=== PATIENT | male | born 1980 | race Caucasian/White ===

== ENCOUNTER 2017-09-27 08:23 | Emergency (ER) | payer SELFPAY ==
[~2017-09-27] VITALS: Ht 167.6 cm; Wt 65.8 kg
[2017-09-27 08:26] VITALS: BP 118/68
--- NOTE | 2017-09-27 08:31 | NUR ---
PT AMBULATES TO BED 7 WITH STEADY GAIT
--- NOTE | 2017-09-27 08:36 | NUR ---
PATIENT PRESENTS TO ED WITH awoke this am to abdominal pain and repeated n/v---pt admits eating late take out last night.denies diarrhea; SKIN IS PINK/WARM/DRY; AAOX4 WITH EVEN AND STEADY GAIT; LUNGS CLEAR BL; HR EVEN AND REGULAR; PT DENIES ANY FEVER, CP, SOB, OR COUGH AT THIS TIME; PATIENT STATES PAIN OF 7/10 AT THIS TIME; VSS; PATIENT POSITIONED FOR COMFORT; HOB ELEVATED; BEDRAILS UP X2; BED DOWN. ER MD MADE AWARE OF PT STATUS.
[2017-09-27] MEDS ORDERED: LORazepam 2 MG/ML VIAL IM/IVP STA (08:42)
[2017-09-27] MEDS ORDERED: ONDANSETRON 4 MG ODT SL PRN (08:45)
[2017-09-27] MEDS ORDERED: ONDANSETRON 4 MG/2 ML VIAL ONE (08:48)
[2017-09-27] MEDS ORDERED: LORazepam 2 MG/ML VIAL ONE (08:49)
[2017-09-27] MEDS ORDERED: ONDANSETRON 4 MG/2 ML VIAL IM ONE (08:50)
--- NOTE | 2017-09-27 08:58 | NUR ---
pt unable to provide urine sample at this time
[2017-09-27 09:18] LABS: BASOPHILS % (AUTO) 0.3 % (0.0-2.0); EOSINOPHILS # (AUTO) 0.1 K/uL (0-0.4); EOSINOPHILS % (AUTO) 0.5 % (0.0-4.0); HEMATOCRIT 43.2 % (36-52); HEMOGLOBIN 14.4 g/dL (12.0-18.0); LYMPHOCYTES # (AUTO) 2.1 K/uL (2.0-11.5); LYMPHOCYTES % (AUTO) 13.7 % (20.5-51.1); MEAN CORPUSCULAR HEMOGLOBIN 29 pg (27-31); MEAN CORPUSCULAR HGB CONC 33 g/dL (33-37); MEAN CORPUSCULAR VOLUME 86.1 fL (80-94); MONOCYTES # (AUTO) 1.3 K/uL (0.8-1.0); MONOCYTES % (AUTO) 8.4 % (1.7-9.3); NEUTROPHILS # (AUTO) 11.6 K/uL (1.8-7.7); NEUTROPHILS % (AUTO) 77.1 % (42.2-75.2); PLATELET COUNT (AUTO) 325 K/uL (140-450); RED BLOOD CELL COUNT(AUTO) 5.02 MIL/uL (4.20-6.10); RED CELL DISTRIBUTION WIDTH 13.2 % (11.6-13.7); WHITE BLOOD COUNT (AUTO) 15.1 K/uL (4.8-10.8)
[2017-09-27 09:26] LABS: ANION GAP 18.6 (8-16); CARBON DIOXIDE 20.8 mmol/L (21-32); CREATININE 1.2 mg/dL (0.7-1.3); POTASSIUM 3.4 mmol/L (3.5-5.1)
[2017-09-27 09:32] LABS: ALBUMIN 4.4 g/dL (3.4-5.0); TOTAL BILIRUBIN 1.1 mg/dL (0.0-1.0)
[2017-09-27] MEDS ORDERED: NACL 0.9% 1,000 ML IV SCH (09:49)
[2017-09-27] MEDS ORDERED: diphenhydrAMINE 50 MG/ML VIAL IVP ONE ×3 (09:50→11:05)
[2017-09-27] MEDS ORDERED: METOCLOPRAMIDE 10 MG/2 ML INJ VIAL IVP ONE (09:50)
--- NOTE | 2017-09-27 10:12 | NUR ---
AWAITS CT SCAN TO BE UP RUNNING AGAIN---MEDICATED FOR DRY HEAVING
[2017-09-27] MEDS ORDERED: NACL 0.9% 1,000 ML IV ONE (11:05)
[2017-09-27 11:50] LABS: APPEARANCE,URINE CLEAR (CLEAR); BILIRUBIN,URINE NEGATIVE (NEGATIVE); BLOOD, URINE NEGATIVE (NEGATIVE); COLOR,URINE YELLOW (YELLOW); LEUKOCYTE ESTERASE ,URINE NEGATIVE (NEGATIVE); NITRITE, URINE NEGATIVE (NEGATIVE); PH,URINE 6.5 (5.0-9.0); UGLUCOSE 1+ (NEGATIVE)
[2017-09-27 11:55] LABS: BARBITURATE, URINE NEG. ng/ml (NEG <=200); BENZODIAZEPINE, URINE NEG. ng/mL (NEG <=200); CANNABINOID, URINE POS. ng/mL (NEG <=50); COCAINE, URINE NEG. ng/mL (NEG <=300); OPIATE, URINE NEG. ng/mL (NEG <=2000); PHENCYCLIDINE SCREEN,URINE NEG. ng/mL (NEG <=25)
[2017-09-27 12:03] LABS: RBC,URINE 0-5 (RARE) /HPF (0-5); WBC,URINE 0-5 (RARE) /HPF (0-5)
--- NOTE | 2017-09-27 13:03 | NUR ---
ultrasound at bedside
[2017-09-27 14:34] VITALS: BP 125/70
--- NOTE | 2017-09-27 14:34 | NUR ---
Patient discharged with v/s stable. Written and verbal after care instructions given and explained. Patient alert, oriented and verbalized understanding of instructions. Ambulatory with steady gait. All questions addressed prior to discharge. ID band removed. Patient advised to follow up with PMD. Rx of zofran/ativan/reglan given. Patient educated on indication of medication including possible reaction and side effects. Opportunity to ask questions provided and answered.
== END 2017-09-27 14:34 | disposition home or self-care (01) ==
LOC: MED 08:23 → EDBD 08:23 → MED 14:34
DX: F41.1 Generalized anxiety disorder (principal); Z88.0 Allergy status to penicillin
CPT/HCPCS: 36415; 76705; 80053; 80305; 81001; 83690; 85025; 96372; 96374; 96375; 99285; J1200; J2060; J2405; J2765; Q0092

== ENCOUNTER 2021-03-03 04:06 | Emergency (ER) | payer BC ==
[~2021-03-03] VITALS: Ht 167.6 cm; Wt 77.1 kg
[2021-03-03 04:15] VITALS: BP 127/77
--- NOTE | 2021-03-03 04:15 | NUR ---
to bed ambulatory
[2021-03-03] MEDS ORDERED: ACETAMINOPHEN EXTRA STRENGTH 500 MG TAB PO ONE (04:25)
[2021-03-03] MEDS ORDERED: ONDANSETRON 4 MG/2 ML VIAL ONE (04:33)
[2021-03-03] MEDS ORDERED: ONDANSETRON 4 MG/2 ML VIAL IVP ONE ×2 (04:35→05:15)
[2021-03-03] MEDS ORDERED: NACL 0.9% 2,000 ML IV ONE (04:35)
--- NOTE | 2021-03-03 04:40 | NUR ---
41 YO/M BIB SELF W C/O N/V BEGINING X2 HOURS AGO W 8 EPISODES OF VOMITING, + ABDOMINAL PAIN ONLY WHEN VOMITNG, +FEVER X2 DAYS. PT DENIES ANY BLOOD IN VOMIT. PT DENIES ANY DIZZINESS, DIARRHEA, COUGH, CONGESTION. NO PAIN AT THIS TIME. BOWEL SOUNDS PRESENT W ABDOMEN SOFT NON-TENDER. PT LAYING IN BED LOCKED IN LOWEST POSITION, HOB ELEVATED, X1 SIDERAIL UP. VSS. BREATHING EVEN AND UNLABORED. NAD NOTED, WILL CONTINUE TO MONITOR. AT BEDSIDE. PMH:DENIES ALLERGIES: PENICILLINS
--- NOTE | 2021-03-03 05:07 | NUR ---
PT REPORTS HE HAD VOMITED THE TYLENOL GIVEN TO HIM EARLIER. PT REQUESTING MEDICATION FOR FEVER. TEMPORAL TEMP 101.1. ERMD MADE AWARE.
[2021-03-03] MEDS ORDERED: KETOROLAC 30 MG/ML VIAL ONE (05:13)
[2021-03-03] MEDS ORDERED: KETOROLAC 30 MG/ML VIAL IVP ONE (05:15)
[2021-03-03] MEDS ORDERED: BEN10 PO (05:40)
[2021-03-03] MEDS ORDERED: ONDA-188 PO (05:40)
[2021-03-03] MEDS ORDERED: ACET-10509 PO (05:40)
--- NOTE | 2021-03-03 06:25 | NUR ---
PT REPORTS FEELING ALOT BETTER. DENIES ANY NAUSEA OR PAIN. VSS.
[2021-03-03 06:41] VITALS: BP 108/53
--- NOTE | 2021-03-03 06:41 | NUR ---
Patient discharged with v/s stable. Written and verbal after care instructions given and explained. Patient alert, oriented and verbalized understanding of instructions. Ambulatory with steady gait. All questions addressed prior to discharge. ID band removed. Patient advised to follow up with PMD. Rx of BENTYL, ACETAMINOPHEN, ONDANSETRON given. Patient educated on indication of medication including possible reaction and side effects. Opportunity to ask questions provided and answered.
== END 2021-03-03 06:41 | disposition home or self-care (01) ==
LOC: MED 04:06
DX: R11.2 Nausea with vomiting, unspecified (principal); R50.9 Fever, unspecified; R10.84 Generalized abdominal pain; Z88.0 Allergy status to penicillin
CPT/HCPCS: 96361; 96374; 96375; 96376; 99284; J1885; J2405; J7030

== ENCOUNTER 2022-04-02 09:44 | Emergency (ER) | payer SELFPAY ==
[~2022-04-02] VITALS: Ht 162.6 cm; Wt 72.6 kg
[~2022-04-02 09:44] MED LIST: ACET-10509 PO; BEN10 PO; ONDA-188 PO
[2022-04-02 09:53] VITALS: BP 149/82
--- NOTE | 2022-04-02 10:03 | NUR ---
PT AMBULATED TO ER BED 7
[2022-04-02] MEDS ORDERED: ONDANSETRON 4 MG/2 ML VIAL ONE (10:11)
[2022-04-02] MEDS ORDERED: NACL 0.9% 1,000 ML IV ONE (10:15)
[2022-04-02] MEDS ORDERED: ONDANSETRON 4 MG/2 ML VIAL IVP ONE ×2 (10:15→11:05)
--- NOTE | 2022-04-02 10:54 | NUR ---
Patient being evaluated by physician at bedside.
[2022-04-02] MEDS ORDERED: KETOROLAC 30 MG/ML VIAL IVP ONE (10:55)
[2022-04-02] MEDS ORDERED: DICYCLOMINE HCL LIQUID 20 MG, ALUMINUM HYD/MAG/SIMETHICONE 30 ML, LIDOCAINE VISCOUS 2% ... PO ONE ×3 (11:45)
[2022-04-02] MEDS ORDERED: PROCHLORPERAZINE 10 MG/2 ML VIAL IVP ONE (11:45)
[2022-04-02] MEDS ORDERED: diphenhydrAMINE 50 MG/ML VIAL IVP ONE (11:45)
[2022-04-02 12:26] LABS: BASOPHILS # (AUTO) 0.1 K/uL (0.00-0.22); BASOPHILS % (AUTO) 0.5 % (0.0-2.0); EOSINOPHILS % (AUTO) 0.1 % (0.0-4.0); HEMATOCRIT 40.4 % (36-52); HEMOGLOBIN 13.8 g/dL (12.0-18.0); LYMPHOCYTES # (AUTO) 0.4 K/uL (2.0-11.5); LYMPHOCYTES % (AUTO) 3.7 % (20.5-51.1); MEAN CORPUSCULAR HEMOGLOBIN 29 pg (27-31); MEAN CORPUSCULAR HGB CONC 34 g/dL (33-37); MEAN CORPUSCULAR VOLUME 85.2 fL (80-94); MONOCYTES # (AUTO) 1.8 K/uL (0.8-1.0); MONOCYTES % (AUTO) 16.5 % (1.7-9.3); NEUTROPHILS # (AUTO) 8.7 K/uL (1.8-7.7); NEUTROPHILS % (AUTO) 79.2 % (42.2-75.2); PLATELET COUNT (AUTO) 265 K/uL (140-450); RED BLOOD CELL COUNT(AUTO) 4.74 MIL/uL (4.20-6.10); RED CELL DISTRIBUTION WIDTH 13.5 % (11.6-13.7)
[2022-04-02 12:37] LABS: ALBUMIN 3.9 g/dL (3.4-5.0); ANION GAP 20.5 (8-16); CARBON DIOXIDE 20.2 mmol/L (21-32); CREATININE 1.4 mg/dL (0.6-1.3); POTASSIUM 3.7 mmol/L (3.5-5.1); TOTAL BILIRUBIN 1.2 mg/dL (0.0-1.0)
[2022-04-02] MEDS ORDERED: IBUP-2213 PO (13:02)
[2022-04-02] MEDS ORDERED: ONDA8TAB87 PO (13:02)
--- NOTE | 2022-04-02 13:08 | NUR ---
IV removed, catheter intact and site benign. Applied folded 4x4 gauze and tape to stop bleeding.
[2022-04-02 13:10] VITALS: BP 107/57
--- NOTE | 2022-04-02 13:10 | NUR ---
Patient discharged with v/s stable. Written and verbal after care instructions given and explained. Patient alert, oriented and verbalized understanding of instructions. Ambulatory with steady gait. All questions addressed prior to discharge. ID band removed. Patient advised to follow up with PMD. Rx of Ibuprofen and Zofran given. Patient educated on indication of medication including possible reaction and side effects. Opportunity to ask questions provided and answered.
== END 2022-04-02 13:10 | disposition home or self-care (01) ==
LOC: MED 09:44
DX: R10.13 Epigastric pain (principal)
CPT/HCPCS: 36415; 80053; 83690; 85025; 96361; 96374; 96375; 96376; 99284; J0780; J1200; J1885; J2405

== ENCOUNTER 2022-06-22 18:36 | Emergency (ER) | payer SELFPAY ==
[~2022-06-22] VITALS: Ht 160 cm; Wt 74.4 kg
[~2022-06-22 18:36] MED LIST changes: +IBUP-2213 PO; +ONDA8TAB87 PO
[2022-06-22 18:41] VITALS: BP 160/75
--- NOTE | 2022-06-22 18:48 | NUR ---
PT AMB TO BED 5
--- NOTE | 2022-06-22 19:00 | NUR ---
C/O ABD PAIN, NVX1 HOUR. ACTIVELY RETCHING IN TRIAGE. DENIES ANY MEDICATION, PER PT HE ATE HAM, CHEESE BURGER AND FRIES FROM [employer]. PER PT REGULAR USAGE OF MARIJUANA, LAST DOSE TODAY IN AM
[2022-06-22] MEDS ORDERED: HALOPERIDOL IM 5 MG/ML VIAL IM ONE (19:05)
[2022-06-22] MEDS ORDERED: diphenhydrAMINE 50 MG CAP PO ONE (19:05)
[2022-06-22] MEDS ORDERED: NACL 0.9% 1,000 ML IV SCH (19:05)
[2022-06-22] MEDS ORDERED: diphenhydrAMINE 50 MG/ML VIAL IM ONE (19:15)
[2022-06-22 19:29] LABS: BASOPHILS # (AUTO) 0.1 K/uL (0.00-0.22); BASOPHILS % (AUTO) 0.5 % (0.0-2.0); EOSINOPHILS % (AUTO) 0.1 % (0.0-4.0); HEMATOCRIT 42.4 % (36-52); HEMOGLOBIN 14.3 g/dL (12.0-18.0); LYMPHOCYTES # (AUTO) 1.2 K/uL (2.0-11.5); LYMPHOCYTES % (AUTO) 5.7 % (20.5-51.1); MEAN CORPUSCULAR HEMOGLOBIN 29 pg (27-31); MEAN CORPUSCULAR HGB CONC 34 g/dL (33-37); MONOCYTES # (AUTO) 1.7 K/uL (0.8-1.0); MONOCYTES % (AUTO) 7.7 % (1.7-9.3); NEUTROPHILS # (AUTO) 18.5 K/uL (1.8-7.7); PLATELET COUNT (AUTO) 311 K/uL (140-450); RED BLOOD CELL COUNT(AUTO) 4.94 MIL/uL (4.20-6.10); RED CELL DISTRIBUTION WIDTH 13.4 % (11.6-13.7); WHITE BLOOD COUNT (AUTO) 21.5 K/uL (4.8-10.8)
[2022-06-22 20:02] LABS: ALBUMIN 4.4 g/dL (3.4-5.0); ANION GAP 17.7 (8-16); CARBON DIOXIDE 22.6 mmol/L (21-32); CREATININE 1.4 mg/dL (0.6-1.3); POTASSIUM 3.3 mmol/L (3.5-5.1); TOTAL BILIRUBIN 1.6 mg/dL (0.0-1.0)
[2022-06-22] MEDS ORDERED: KCL 20 MEQ IN 100 mL PREMIX 200 ML IV ONE (20:25)
[2022-06-22] MEDS ORDERED: METOCLOPRAMIDE 10 MG/2 ML INJ VIAL IVP ONE (20:25)
--- NOTE | 2022-06-22 20:39 | NUR ---
CIELO CALLED REQUESTING UPDATE
[2022-06-22 21:40] VITALS: BP 160/75
--- NOTE | 2022-06-22 21:40 | NUR ---
PATIENT ELOPED FROM FACILITY. DISCHARGE INSTRUCTIONS NOT GIVEN TO PATIENT. NOTIFIED.
== END 2022-06-22 21:40 | disposition left against medical advice (07) ==
LOC: MED 18:36
DX: R11.2 Nausea with vomiting, unspecified (principal); E87.6 Hypokalemia; E86.0 Dehydration; N28.9 Disorder of kidney and ureter, unspecified; Z79.899 Other long term (current) drug therapy
CPT/HCPCS: 36415; 74176; 80053; 83690; 85025; 93005; 96361; 96372; 96374; 99285; J1200; J1630; J2765; J3480; J7030; Q0163

== ENCOUNTER 2022-07-22 09:01 | Emergency (ER) | payer SELFPAY ==
[~2022-07-22] VITALS: Ht 172.7 cm; Wt 71.7 kg
[2022-07-22 09:23] VITALS: BP 116/70
--- NOTE | 2022-07-22 09:27 | NUR ---
Timbo gutierrez in [facility] - 07/22/22 at 0931 by CASPER PT AMBULATED TO BED 11 WITH STEADY/EVEN GAIT.
--- NOTE | 2022-07-22 09:27 | NUR ---
PT AMBULATED TO BED 06 WITH STEADY/EVEN GAIT.
[2022-07-22] MEDS ORDERED: ONDANSETRON 4 MG/2 ML VIAL IVP ONE (09:40)
[2022-07-22] MEDS ORDERED: NACL 0.9% 1,000 ML IV ONE (09:40)
--- NOTE | 2022-07-22 09:53 | NUR ---
Dr. Joya evaluating patient at bedside.
[2022-07-22] MEDS ORDERED: HALOPERIDOL IM 5 MG/ML VIAL IM ONE (09:55)
--- NOTE | 2022-07-22 10:02 | NUR ---
42 y/o male bib self with c/o nausea, vomiting and upper abdominal pain x today. Denies taking any medication prior to arrival. Denies any blood in vomit. Patient states he smoke weed last night. Denies any sick contacts or new foods. Medical History: Denies ALLERGY:AMOXICILLIN
[2022-07-22 10:12] LABS: BASOPHILS # (AUTO) 0.1 K/uL (0.00-0.22); BASOPHILS % (AUTO) 0.6 % (0.0-2.0); EOSINOPHILS % (AUTO) 0.1 % (0.0-4.0); HEMOGLOBIN 14.2 g/dL (12.0-18.0); LYMPHOCYTES # (AUTO) 1.9 K/uL (2.0-11.5); LYMPHOCYTES % (AUTO) 12.7 % (20.5-51.1); MEAN CORPUSCULAR HEMOGLOBIN 29 pg (27-31); MEAN CORPUSCULAR HGB CONC 33 g/dL (33-37); MEAN CORPUSCULAR VOLUME 87.6 fL (80-94); MONOCYTES # (AUTO) 1.2 K/uL (0.8-1.0); MONOCYTES % (AUTO) 7.7 % (1.7-9.3); NEUTROPHILS % (AUTO) 78.9 % (42.2-75.2); PLATELET COUNT (AUTO) 391 K/uL (140-450); RED BLOOD CELL COUNT(AUTO) 4.91 MIL/uL (4.20-6.10); RED CELL DISTRIBUTION WIDTH 13.7 % (11.6-13.7); WHITE BLOOD COUNT (AUTO) 15.1 K/uL (4.8-10.8)
[2022-07-22] MEDS ORDERED: KETOROLAC 30 MG/ML VIAL IVP ONE (10:20)
[2022-07-22 10:35] LABS: ALBUMIN 4.5 g/dL (3.4-5.0); ANION GAP 19.5 (8-16); CARBON DIOXIDE 20.9 mmol/L (21-32); CREATININE 1.3 mg/dL (0.6-1.3); POTASSIUM 3.4 mmol/L (3.5-5.1); TOTAL BILIRUBIN 1.2 mg/dL (0.0-1.0)
--- NOTE | 2022-07-22 10:57 | NUR ---
Patient returned from CT
[2022-07-22 10:59] LABS: APPEARANCE,URINE CLEAR (CLEAR); BILIRUBIN,URINE NEGATIVE (NEGATIVE); BLOOD, URINE NEGATIVE (NEGATIVE); COLOR,URINE YELLOW (YELLOW); LEUKOCYTE ESTERASE ,URINE NEGATIVE (NEGATIVE); NITRITE, URINE NEGATIVE (NEGATIVE); UGLUCOSE NEGATIVE (NEGATIVE)
[2022-07-22 11:33] LABS: RBC,URINE 0-5 /HPF (0-5); WBC,URINE 0-5 /HPF (0-5)
--- NOTE | 2022-07-22 12:14 | NUR ---
Dr. Joya re-evaluating patient at bedside.
[2022-07-22] MEDS ORDERED: BEN10 PO (12:19)
[2022-07-22] MEDS ORDERED: ONDA-188 PO (12:19)
[2022-07-22] MEDS ORDERED: SUCR1TAB35 PO (12:19)
[2022-07-22] MEDS ORDERED: SIME125C PO (12:19)
[2022-07-22 12:34] VITALS: BP 101/54
--- NOTE | 2022-07-22 12:34 | NUR ---
Patient discharged with v/s stable. Written and verbal after care instructions given. Patient alert, oriented and verbalized understanding of instructions. Ambulatory with steady gait. All questions addressed prior to discharge. ID band removed. Patient advised to follow up with PMD. Rx of BENTYL, ZOFRAN, GAS-X AND CARAFATE given. Opportunity to ask questions provided and answered. WORK NOTE HANDED TO PATIENT.
--- NOTE | 2022-07-22 12:51 | NUR ---
The patient's care was reviewed and supervised by SERA HOLDEN RN. Pt. left without difficulty. Walked out of ER without distress. Stable for D/C
== END 2022-07-22 12:34 | disposition home or self-care (01) ==
LOC: MED 09:01
DX: R10.84 Generalized abdominal pain (principal); R11.2 Nausea with vomiting, unspecified; R19.7 Diarrhea, unspecified; Z79.899 Other long term (current) drug therapy; Z88.0 Allergy status to penicillin
CPT/HCPCS: 36415; 74176; 80053; 81001; 83690; 85025; 96361; 96372; 96374; 96375; 99285; J1630; J1885; J2405; J7030